=== PATIENT | female | born 1985 | race Caucasian/White ===

== ENCOUNTER 2016-11-17 09:59 | Emergency (ER) | payer OTHER ==
[~2016-11-17] VITALS: Ht 165.1 cm; Wt 83.9 kg
[2016-11-17 10:07] VITALS: BP 130/81
--- NOTE | 2016-11-17 10:30 | ED NECK/BACK PAIN COMPLAINT ---
History of Present Illness General Chief Complaint: Low Back Pain/Injury Stated Complaint: BACK PAIN CHRONIC Source: patient, family Exam Limitations: no limitations Vital Signs & Intake/Output Vital Signs & Intake/Output Vital Signs Date Time Temp Pulse Resp B/P B/P Pulse O2 O2 Flow FiO2 Mean Ox Delivery Rate 11/17 1007 97.7 110 16 130/81 97 Room Air Allergies Coded Allergies: No Known Allergies (05/22/16) Reconcile Medications Cyclobenzaprine HCl 10 MG TABLET 1 TAB PO Q8P PAIN OR SPASM Oxycodone HCl (Roxicodone) 15 MG TABLET 1 TAB PO 4XDP PRN PAIN Prednisone 10 MG TABLET 1 TAB PO DAILY BACK PAIN TAKE 4 TABS FOR 3 DAYS THEN TAKE 3 TABS FOR 3 DAYS THEN TAKE 2 TABS FOR 3 DAYS THEN TAKE 1 TAB FOR 3 DAYS Triage Note: PT HERE FOR PAIN MEDICATION FOR HER CHRONIC BACK PAIN. Triage Nurses Notes Reviewed? yes : No Patient currently breastfeeds: No HPI: Patient has chronic low back pain secondary to herniated disks. Patient is due to have surgery. Patient ran out of her pain medication. 3 days ago patient lift her daughter and had a sudden onset of worsening low back pain radiating down her left leg. The pain worsens with movement. There is no incontinence of bowel or bladder. There is no weakness or numbness. Patient is unable to see her doctor until the . There is no fever or Chills. The pain is 10 out of 10 and is throbbing in nature. The pain is constant. Past History Travel History Traveled to [place] past 21 day No Medical History Any Pertinent Medical History? see below for history Musculoskeletal: CHRONIC BACK PAIN Psychiatric: anxiety Surgical History Surgical History: non-contributory Psychosocial History What is your primary language Yoruba Tobacco Use: Current Daily Use Daily Tobacco Use Amount/Type: => 5 Cigarettes daily ETOH Use: denies use Illicit Drug Use: denies illicit drug use Family History Hx Contributory? No Review of Systems Review of Systems Constitutional: Reports: no symptoms. Ears, Nose, Throat, Mouth: Reports: no symptoms. Respiratory: Reports: no symptoms. Cardiovascular: Reports: no symptoms. Musculoskeletal: Reports: see HPI, back pain. Neurological/Psychological: Reports: no symptoms. Physical Exam Physical Exam General Appearance: well developed/nourished, alert, awake, anxious, moderate distress Eyes: Bilateral: PERRL, EOMI. Neck: normal inspection, supple, full range of motion Respiratory: normal breath sounds, chest non-tender, no respiratory distress, lungs clear Cardiovascular: regular rate/rhythm, normal peripheral pulses Gastrointestinal: normal bowel sounds, soft, non-tender, no organomegaly Back: muscle spasm, no vertebral tenderness Straight Leg Raising: Right: Negative. Left: Negative. DTR: Deficit L4 Left: No Deficit L4 Right: No Deficit S1 Left: No Deficit S1 Right: No Patellar: 3: L4 Right, L4 Left. Achilles: 3: S1 Right, S1 Left. Neurologic/Psych: no motor/sensory deficits, awake, alert, oriented x 3, normal gait, normal mood/affect Progress Differential Diagnosis: herniated disc, myofascial strain, sciatica, T/L spine injury Plan of Care: Current Medications Sig/Margarita Start time Last Medication Dose Stop Time Status Admin Cyclobenzaprine HCl 10 MG ONCE ONE 11/17 1030 UNVr (Flexeril 10MG Tab) 11/17 1031 Oxycodone HCl 15 MG ONCE ONE 11/17 1030 UNVr (Roxicodone) 11/17 1031 Prednisone 60 MG ONCE ONE 11/17 1030 UNVr 11/17 1031 Departure Departure Disposition: HOME OR SELF CARE Condition: Stable Clinical Impression Primary Impression: Back pain Qualifiers: Back pain location: low back pain Chronicity: chronic Back pain laterality: left Sciatica presence: without sciatica Qualified Codes: M54.5 - Low back pain; G89.29 - Other chronic pain Referrals: ALEIDA HARKINS,NIESHA Wilkinson (PCP/Family) Additional Instructions: USE MOIST HEAT FOLLOW UP WITH YOUR DOCTOR RETURN FOR ANY CONCERNS Departure Forms: Customer Survey General Discharge Information Prescriptions: Current Visit Scripts Cyclobenzaprine HCl 1 TAB PO Q8P #20 TAB Prednisone 1 TAB PO DAILY #30 TAB TAKE 4 TABS FOR 3 DAYS THEN TAKE 3 TABS FOR 3 DAYS THEN TAKE 2 TABS FOR 3 DAYS THEN TAKE 1 TAB FOR 3 DAYS Oxycodone HCl (Roxicodone) 1 TAB PO 4XDP PRN PAIN #16 TAB
[2016-11-17] MEDS ORDERED: ROXICODONE15 M1 PO (10:32)
[2016-11-17] MEDS ORDERED: PREDNISONE10 M2 PO (10:32)
[2016-11-17] MEDS ORDERED: CYCLOBENZAPRINE10 M1 PO (10:32)
== END 2016-11-17 10:40 ==
LOC: ERH 09:59 → EDBD 10:10 → ERH 10:10
DX: M54.5 Low back pain (principal)

== ENCOUNTER 2016-11-26 14:35 | Emergency (ER) | payer OTHER ==
[~2016-11-26] VITALS: Ht 162.6 cm; Wt 83.5 kg
[~2016-11-26 14:35] MED LIST: CYCLOBENZAPRINE10 M1 PO; PREDNISONE10 M2 PO; ROXICODONE15 M1 PO
--- NOTE | 2016-11-26 16:43 | ED UPPER/LOWER EXTREMITY COMPL ---
History of Present Illness General Chief Complaint: Lower Extremity Problems Stated Complaint: PT IS HAVING BACK PAIN Source: patient Exam Limitations: no limitations Vital Signs & Intake/Output Vital Signs & Intake/Output Vital Signs Date Time Temp Pulse Resp B/P B/P Pulse O2 O2 Flow FiO2 Mean Ox Delivery Rate 11/26 1721 98.2 110 18 127/88 98 Room Air 11/26 1451 98.3 112 18 126/86 98 Room Air ED Intake and Output 11/27 0000 11/26 1200 Intake Total Output Total Balance Patient 184 lb Weight Allergies Coded Allergies: shellfish derived (ANAPHYLAXIS - SEAFOOD 11/26/16) Reconcile Medications Alprazolam 2 MG TABLET 1 TAB PO BID ANXIETY (Reported) Oxycodone HCl 15 MG TABLET 1 TAB PO TID PRN PAIN Oxycodone HCl (Roxicodone) 15 MG TABLET 1 TAB PO 4XDP PRN PAIN Triage Note: PT COMPLAINS OF LOW BACK PAIN THAT SHE STATES IS CHRONIC. PT RAN OUT OF HER OXYCODONE 15 MG THAT SHE TAKES QID ON FRIDAY Triage Nurses Notes Reviewed? yes Onset: Abrupt Duration: day(s): (4-5) Timing: recent history Severity: moderate, severe Pain/Injury Location: Bilateral: Other (BACK). Modifying Factors: Worsens With: movement. Associated Symptoms: stiffness, MUSCLE SPASM : No Patient currently breastfeeds: No HPI: This is a 31-year-old female presents to the ER for chief complaint of acute on chronic low back pain. She is on oxycodone 50 mg 4 times a day for the last 2 years. She ran out of her medications on . Today she saw her neurosurgeon in the office who she thought was going to refill her prescriptions but they told her that her PCP needed to do that. She then went to her primary care doctor's office who was unavailable to see her. Patient is due to have a discectomy which she is trying to schedule. She has a history of chronic hernia disc. Denies any new numbness or tingling but has been dealing with difficulty with her urine for the past 2 years. Secondary to this. Advised her to have surgery which is probably going to do. Patient denies abusing her medications. Past History Travel History Traveled to [place] past 21 day No Medical History Any Pertinent Medical History? 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 No Review of Systems Review of Systems Constitutional: Denies: chills, fever. EENTM: Reports: no symptoms. Respiratory: Denies: cough, short of breath. Cardiovascular: Denies: chest pain. Gastrointestinal/Abdominal: Reports: diarrhea. Denies: nausea, vomiting. Genitourinary: Reports: no symptoms. Musculoskeletal: Reports: back pain, muscle pain, muscle stiffness. Skin: Reports: no symptoms. Neurological/Psychological: Reports: no symptoms. Hematologic/Endocrine: Denies: bruising, bleeding, polyuria, polydipsia. Immunological: Denies: splenectomy. All Other Systems: Reviewed and Negative Physical Exam Physical Exam General Appearance: well developed/nourished, alert, awake, mild distress Head: atraumatic Eyes: Bilateral: PERRL, EOMI. Ears, Nose, Throat: normal pharynx, normal ENT inspection, hearing grossly normal Neck: normal inspection, supple Cardiovascular/Respiratory: regular rate/rhythm Peripheral Pulses: 2+ radial (R), 2+ radial (L) Back: normal inspection, TENDER TO PALPATION OF LOWER BACK NO DEFORMITY, SKIN LESIONS NO DIRECT TENDERNESS TO PALPATION OVER SPINOUS PROCESSES Neurologic/Tendon: normal sensation, normal motor functions, normal tendon functions Skin: intact, normal color, warm/dry Lymphatic: no anterior cervical david Progress Differential Diagnosis: acute on chronic back pain, medication refill, SCIATICA, HERNIATED DISCS Plan of Care: LIMITED RX SENT TO PHARMACY PATIENT TOLD TO FOLLOW UP WITH HER PCP/ORTHOPEDIST FOR FUTURE SUPPLY OF MEDICATIONS Departure Departure Time of Disposition: 1648 Disposition: HOME OR SELF CARE Condition: Stable Clinical Impression Primary Impression: Chronic pain Referrals: ALEIDA HARKINS,NIESHA Wilkinson (PCP/Family) Additional Instructions: Take medications as prescribed. They are at [facility]. Please call her primary care doctor regarding the issues with your pain prescriptions. Schedule your discectomy as previously discussed. Departure Forms: Customer Survey General Discharge Information Prescriptions: Current Visit Scripts Oxycodone HCl 1 TAB PO TID PRN PAIN #10 TAB
[2016-11-26] MEDS ORDERED: OXYCODONE HCL15 M1 PO (16:48)
[2016-11-26] MEDS ORDERED: ALPRAZOLAM2 M2 PO (16:55)
[2016-11-26 17:21] VITALS: BP 127/88
== END 2016-11-26 17:21 ==
LOC: ERH 14:35 → EDBD 15:15 → ERH 17:21
DX: G89.29 Other chronic pain (principal)
CPT/HCPCS: 99281

== ENCOUNTER 2016-12-04 12:59 | Emergency (ER) | payer OTHER ==
[~2016-12-04] VITALS: Ht 162.6 cm; Wt 83.5 kg
[~2016-12-04 12:59] MED LIST changes: +ALPRAZOLAM2 M2 PO; +OXYCODONE HCL15 M1 PO
[2016-12-04 13:06] VITALS: BP 118/80
--- NOTE | 2016-12-04 13:20 | ED NECK/BACK PAIN COMPLAINT ---
History of Present Illness General Chief Complaint: Low Back Pain/Injury Stated Complaint: BACK PAIN Source: patient Exam Limitations: no limitations Vital Signs & Intake/Output Vital Signs & Intake/Output Vital Signs Date Time Temp Pulse Resp B/P B/P Pulse O2 O2 Flow FiO2 Mean Ox Delivery Rate 12/04 1306 98.0 120 20 118/80 98 Room Air Allergies Coded Allergies: shellfish derived (ANAPHYLAXIS - SEAFOOD 11/26/16) Reconcile Medications Alprazolam 2 MG TABLET 1 TAB PO BID ANXIETY (Reported) Ketorolac Tromethamine 10 MG TABLET 1 TAB PO Q6P PRN pain Oxycodone HCl 15 MG TABLET 1 TAB PO TID PRN PAIN Oxycodone HCl (Roxicodone) 15 MG TABLET 1 TAB PO 4XDP PRN PAIN Triage Note: PT TO ED C/O EXACERBATION OF CHRONIC BACK PAIN. THINKS SHE EXACERBATED IT OVER THE WEEKEND. TAKES 15MG OXYCODONE 4X/DAY. PT RAN OUT OF MEDS. SCHEDULED FOR SURGERY 12/27 FOR HERNIATED DISKS. Triage Nurses Notes Reviewed? yes Onset: Gradual Duration: constant Timing: remote history Location: lumbar spine, paraspinous muscles Radiation: buttocks, upper legs, lower legs Loss of Consciousness: no loss of consciousness : No Patient currently breastfeeds: No HPI: Patient is a 31-year-old female with past medical history of chronic back pain and herniated disks where she states that next month she will have a surgical intervention for her low back and which she states that for her chronic back pain she was receiving narcotic prescriptions by her primary care doctor however last month the primary care doctor advised the orthopedic doctor to provide narcotic prescriptions to the patient where she states that the orthopedic doctor wanted the primary care doctor to provide narcotics to the patient where she has presented now on her fifth visit to a urgent care facility or the ER for prescription request of pain medications for her chronic low back pain. Patient denies any significant mechanism of injury recently or falls. Patient has chronic left lower extremity paresthesia and pain. Denies any saddle paresthesia or bowel bladder incontinence. Patient states that low back movements make worse. (REINA ALEXANDRE,LILIYA) Past History Travel History Traveled to [place] past 21 day No Medical History Any Pertinent Medical History? 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 No (LILIYA HOPPER) Review of Systems Review of Systems Constitutional: Reports: no symptoms. Eyes: Reports: no symptoms. Ears, Nose, Throat, Mouth: Reports: no symptoms. Respiratory: Reports: no symptoms. Cardiovascular: Reports: no symptoms. Gastrointestinal/Abdominal: Reports: no symptoms. Musculoskeletal: Reports: see HPI. Skin: Reports: no symptoms. Neurological/Psychological: Reports: see HPI, paresthesia. All Other Systems: Reviewed and Negative (LILIYA HOPPER) Physical Exam Physical Exam General Appearance: no apparent distress, alert Neck: normal inspection, supple, full range of motion Comments: Well-developed well-nourished person in no acute distress HEENT: Normal EENT exam, Neck: Supple, no lymphadenopathy, normal range of motion without pain or tenderness Back: Normal inspection, decreased active range of motion noted, left lateral muscular point tenderness noted Cardiovascular: Regular rate and rhythms no murmurs rubs or gallops, normal JVP Respiratory: Chest nontender. No respiratory distress.breath sounds clear to auscultation bilaterally Abdomen: Soft, nontender nondistended, no appreciable organomegaly. Normal bowel sounds. No ascites Extremity: No edema, no calf tenderness to palpation, normal and equal pulses. Bilateral lower extremity myotomes dermatomes DTRs intact Neuro: Alert oriented x3, motor sensory normal, . Skin: No appreciable rash on exposed skin, skin is warm and dry. Psych: Mood and affect is normal, memory and judgment is normal. (LILIYA HOPPER) Progress Differential Diagnosis: AAA, aortic dissection, C spine injury, carotid dissection, cauda equina syn, herniated disc, myofascial strain, pyelo/UTI, sciatica, spinal cord inj, thoracic outlet syn, T/L spine injury, ureterolithiasis Plan of Care: Current Medications Sig/Margarita Start time Last Medication Dose Stop Time Status Admin Dexamethasone 8 MG ONCE ONE 12/04 1345 UNVr (Decadron) 12/04 1346 Ketorolac 30 MG ONCE ONE 12/04 1345 UNVr Tromethamine 12/04 1345 (Toradol) Oxycodone/ 1 TAB ONCE ONE 12/04 1344 UNVr Acetaminophen 12/04 1345 (Percocet) Patient currently presents emergency room with concerns of chronic lumbar radiculopathy and low back pain. There are no concerns of CUADA EQUINA SYNDROME It is noted through CT [employer] the patient has received X4 narcotic prescriptions in the last month and which at this time I do not feel comfortable prescribing another narcotic medication to the patient. Patient was strongly advised to follow up with the primary care doctor and/or the orthopedic doctor for medication refill request. Patient had normal steady gait on discharge. (LILIYA HOPPER) Departure Departure Disposition: HOME OR SELF CARE Condition: Stable Clinical Impression Primary Impression: Low back pain Referrals: ALEIDA HARKINS,NIESHA Wilkinson (PCP/Family) Additional Instructions: As discussed begin icing or heating the area for relief of your symptoms. You have received an intramuscular injection of Decadron in the emergency room, for inflammation. Begin the prescription and ketorolac for pain and inflammation. Prescriptions are waiting at [facility]. Follow-up with your primary care doctor and/or your orthopedic doctor THIS week for prescription medication request. If symptoms worsen return to emergency room Departure Forms: Customer Survey General Discharge Information Prescriptions: Current Visit Scripts Ketorolac Tromethamine 1 TAB PO Q6P PRN pain #20 TAB (LILIYA HOPPER) PA/STATUS CONTROLLER Co-Sign Statement Statement: ED Attending supervision documentation- [] I saw and evaluated the patient. I have also reviewed all the pertinent lab results and diagnostic results. I agree with the findings and the plan of care as documented in the PA's/STATUS CONTROLLER's documentation. [X] I have reviewed the ED Record and agree with the PA's/STATUS CONTROLLER's documentation. [] Additions or exceptions (if any) to the PAs/STATUS CONTROLLER's note and plan are summarized below: [] (JOSELINE MAYA DO)
[2016-12-04] MEDS ORDERED: KETOROLAC TROME10 M1 PO (13:36)
== END 2016-12-04 14:06 ==
LOC: ERH 12:59
DX: M54.5 Low back pain (principal)
CPT/HCPCS: 96372; J1885

== ENCOUNTER 2017-08-20 18:07 | Emergency (ER) | payer OTHER ==
[~2017-08-20] VITALS: Ht 162.6 cm; Wt 73.5 kg
[~2017-08-20 18:07] MED LIST changes: +KETOROLAC TROME10 M1 PO; +ROXICODONE30 M1 PO
[2017-08-20 18:35] VITALS: BP 112/73
[2017-08-20] MEDS ORDERED: PERCOCET 5-3251 EACH PO (18:38)
--- NOTE | 2017-08-20 18:39 | ED NECK/BACK PAIN COMPLAINT ---
History of Present Illness General Chief Complaint: General Adult Stated Complaint: PAIN MEDS Source: patient, old records Exam Limitations: no limitations Vital Signs & Intake/Output Vital Signs & Intake/Output Vital Signs Date Time Temp Pulse Resp B/P B/P Pulse O2 O2 Flow FiO2 Mean Ox Delivery Rate 08/20 1835 98.3 100 16 112/73 97 Room Air Allergies Coded Allergies: shellfish derived (ANAPHYLAXIS - SEAFOOD 11/26/16) Reconcile Medications Oxycodone HCl 15 MG TABLET 1 TAB PO 4XDP back pain Oxycodone HCl 15 MG TABLET 1 TAB PO TID PRN PAIN Oxycodone HCl (Roxicodone) 30 MG TABLET 1 TAB PO BID PAIN Oxycodone HCl (Roxicodone) 15 MG TABLET 1 TAB PO 4XDP PRN PAIN Oxycodone HCl/Acetaminophen (Percocet 5-325 MG Tablet) 5 MG-325 MG TABLET 1 TAB PO BID PRN PAIN Triage Note: PT STATES SHE MISSED HER PAIN MANAGEMENT APPT. TODAY AND WAS TOLD TO COME TO ED THAT THERE WAS NOTHING THEY COULD DO FOR HER. PT STATES SHE HAS TWO HERNIATED DISC IN HER BACK. Triage Nurses Notes Reviewed? yes Onset: Gradual Duration: day(s): (1), constant Timing: recent history Quality/Severity: moderate Location: lumbar spine, paraspinous muscles Context: chronic Loss of Consciousness: no loss of consciousness Modifying Factors: movement, pain medication, rest Associated Symptoms: denies : No Patient currently breastfeeds: No HPI: 32-year-old female history of chronic back pain and pain management in [place] for she is on Roxicodone 30 mg presents to ER for evaluation after she states she missed her appointment on August 14 she was seen here at the emergency room at that time and was prescribed her medication presents for refill she states she is still unable follow up with her pain management. She denies recent new injury trauma or fall. No abdominal pain fever chills no urinary or bowel incontinence. (Giuliana ALEXANDRE,Reinaldo) Past History Travel History Traveled to [place] past 21 day No Medical History Any Pertinent Medical History? 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 No (Reinaldo Mccann) Review of Systems Review of Systems Constitutional: Reports: see HPI. Comments Review of systems: See HPI, All other systems negative. Constitutional, no chills no fever, HEENT: no sore throat no congestion Cardiovascular: No chest pain , Skin: no rashes, no change in skin Respiratory: No dyspnea no cough no sputum GI: No nausea no vomiting, no diarrhea : No dysuria No hematuria, no frequency Muscle skeletal: chronic back pain, no neck pain, Neurologic: , no headache Heme/endocrine: No bruising (Reinaldo Mccann) Physical Exam Physical Exam General Appearance: well developed/nourished, no apparent distress, alert, awake , comfortable Neck: normal inspection, supple, full range of motion Comments: Well-developed well-nourished patient in no apparent distress. HEENT: Atraumatic, extraocular motion intact Neck: Supple, FROM Back: FROM Cardiovascular: Regular rate and rhythm Respiratory: No respiratory distress. Patient speaking in full complete sentences. Breath sounds clear to auscultation bilaterally: NO W/R/R Extremities: full range of motion 5/5 strength to b/l le Neuro: awake, alert, and oriented to person, place and time. There were no obvious focal neurologic abnormalities. Skin: Warm & dry;No appreciable rash on exposed skin Psych: Mood affect normal, normal memory normal judgment. Core Measures CVA/TIA Diagnosis: No (Reinaldo Mccann) Progress Differential Diagnosis: cauda equina syn, herniated disc, myofascial strain, pyelo/UTI, spinal cord inj Plan of Care: Patient has been seen numerous times the past for her chronic back pain most recently 8 days ago, I discussed with her that we cannot continue to provide her with her narcotic medications that she is in pain management there is no recent new injury or trauma patient is resting in no apparent distress she feels comfortable with this plan (Reinaldo Mccann) Departure Departure Time of Disposition: 1836 Disposition: HOME OR SELF CARE Condition: Stable Clinical Impression Primary Impression: Chronic pain Referrals: Kerry Cedeno APRN (PCP/Family) Additional Instructions: FOLLOW UP WITH YOUR PMD FOR FUTURE REFILLS OF YOUR MEDICATION UNTIL YOU CAN SEE YOUR PAIN MANAGEMENT THIS ER CANNOT CONTINUE TO PRESCRIBE THIS MEDICATION. PERCOCET FOR PAIN- USE CAUTION THESE MEDICATIONS ARE HIGHLY ADDICTIVE. Departure Forms: Customer Survey General Discharge Information Prescriptions: Current Visit Scripts Oxycodone HCl/Acetaminophen (Percocet 5-325 MG Tablet) 1 TAB PO BID PRN PAIN #10 TAB (Giuliana ALEXANDRE,Reinaldo) PA/CNC MAINTENANCE MECHANIC Co-Sign Statement Statement: ED Attending supervision documentation- [] I saw and evaluated the patient. I have also reviewed all the pertinent lab results and diagnostic results. I agree with the findings and the plan of care as documented in the PA's/CNC MAINTENANCE MECHANIC's documentation. [X] I have reviewed the ED Record and agree with the PA's/CNC MAINTENANCE MECHANIC's documentation. [] Additions or exceptions (if any) to the PAs/CNC MAINTENANCE MECHANIC's note and plan are summarized below: [] (Britton HARKINS,Orlando Rdz)
== END 2017-08-20 18:44 ==
LOC: ERH 18:07
DX: G89.29 Other chronic pain (principal)

== ENCOUNTER 2017-12-10 17:27 | Observation (INO) | payer OTHER ==
[~2017-12-10 17:27] MED LIST changes: +PERCOCET 5-3251 EACH PO
--- NOTE | 2017-12-10 17:52 | ED GENERAL ADULT ---
See Addendum History of Present Illness General Chief Complaint: ETOH/Drug Related Complaint Stated Complaint: BIBA FOR DRUG/ETOH Source: patient, EMS, police Exam Limitations: no limitations Vital Signs & Intake/Output Vital Signs & Intake/Output Vital Signs Date Time Temp Pulse Resp B/P B/P Pulse O2 O2 Flow FiO2 Mean Ox Delivery Rate 12/10 1740 Room Air 12/10 1735 98.7 87 16 130/91 98 Room Air Allergies Coded Allergies: shellfish derived (ANAPHYLAXIS - SEAFOOD 11/26/16) Reconcile Medications Oxycodone HCl 15 MG TABLET 1 TAB PO 4XDP back pain Oxycodone HCl 15 MG TABLET 1 TAB PO TID PRN PAIN Oxycodone HCl (Roxicodone) 30 MG TABLET 1 TAB PO BID PAIN Oxycodone HCl (Roxicodone) 15 MG TABLET 1 TAB PO 4XDP PRN PAIN Oxycodone HCl/Acetaminophen (Percocet 5-325 MG Tablet) 5 MG-325 MG TABLET 1 TAB PO BID PRN PAIN Triage Note: PT CAME IN FROM EMS. WAS ARRESTED AT [employer] FOR [facility], WHEN PT STATES DID 10BAGS OF HEROIN AND SWALLOWED A [place]. [employer] PATENT. CLEAR THROAT. PT STATES THAT THE FIRST TIME SHE USED HEROIN WAS LAST FRIDAY. SHE STATED THAT DID HEROIN B/C SHE RAN OUT OF HER OXY FOR PAIN FOR HER BACK. Triage Nurses Notes Reviewed? yes : No Patient currently breastfeeds: No HPI: Patient is a 32-year-old female with past medical history of vertebral fractures and slipped disks on oxycodone for the past several years, who presents today in police custody via EMS after a heroin overdose. She reports that the first time she ever used heroin was 6 days ago after she ran out of her oxycodone prescription pills and began to experience withdrawal. A colleague of hers who is a long time heroin user suggested she try it. She has been using 2-3 bags intravenously since then, and today was with that acquaintance all day and had used approximately 10 bags. They needed to get money and went to the [employer] where she attempted to use a fake identification card, at which time place were called. Prior to being arrested, the patient states that she stuffed 3 partially open dime bags of heroin into her mouth and swallowed them whole. That was 45 minutes prior to arrival. The patient remains in place custody and is scheduled to appear in court tomorrow. Currently, she is very tearful but not somnolent. Past History Travel History Traveled to [place] past 21 day No Medical History Any Pertinent Medical History? 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 No Review of Systems Review of Systems Constitutional: Reports: see HPI. EENTM: Reports: no symptoms. Respiratory: Reports: no symptoms. Cardiovascular: Reports: no symptoms. GI: Reports: no symptoms. Genitourinary: Reports: no symptoms. Musculoskeletal: Reports: no symptoms. Skin: Reports: no symptoms. Neurological/Psychological: Reports: see HPI, emotional problems. Hematologic/Endocrine: Reports: no symptoms. Immunologic/Allergic: Reports: no symptoms. All Other Systems: Reviewed and Negative Physical Exam Physical Exam General Appearance: well developed/nourished, anxious, mild distress Comments: Gen.: Anxious, tearful female in no medical distress. Highly emotionally distressed. HEENT: Inspection of the head reveals a normocephalic cranium with no signs of trauma. Ophtho: Extraocular muscles are intact. The sclera are noninjected, and there is no obvious discharge. Neck: No signs of trauma or asymmetry to the neck. Respiratory: The patient exhibits no signs of labored breathing. Cardiac: Non-tachycardic. GI: No gross abdominal distention. : Deferred Neuro: Do not sedate or somnolent at the present time. The patient is oriented to person, place, time, and situation, with no obvious focal motor deficits. Cranial nerves II through XII are intact, and gait is normal. Behavioral: Tearful, anxious, regretful, denying suicidality or homicidality. Dermatologic: Dermatologic examination reveals no obvious rashes or exanthems. Core Measures ACS in differential dx? No CVA/TIA Diagnosis: No Sepsis Present: No Sepsis Focused Exam Completed? No Progress Differential Diagnoses I considered the following diagnoses in my evaluation of the patient: Heroin overdose, respiratory failure, respiratory insufficiency, opiate overdose, coingestants, psychiatric disease, multiple other possibilities. Plan of Care: Orders Procedure Date/time Status Regular Diet 12/11 B Active ACETOMINOPHEN 12/10 1821 Active SALICYLATE 12/10 1821 Active URINE 12/10 1744 Complete URINALYSIS 12/10 1744 Complete TROPONIN LEVEL 12/10 1744 Active COMPREHENSIVE METABOLIC PANEL 12/10 1744 Active CBC WITHOUT DIFFERENTIAL 12/10 1744 Complete EKG 12/10 1744 Active URINE DRUGS OF ABUSE 12/10 173 Active Laboratory Tests 12/10/171821: Sodium Pending, Potassium Pending, Chloride Pending, Carbon Dioxide Pending, Anion Gap Pending, BUN Pending, Creatinine Pending, BUN/Creatinine Ratio Pending , Glucose Pending, Calcium Pending, Total Bilirubin Pending, AST Pending, ALT Pending, Alkaline Phosphatase Pending, Troponin I Pending, Total Protein Pending , Albumin Pending, Globulin Pending, Albumin/Globulin Ratio Pending, CBC w Diff NO MAN DIFF REQ, RBC 4.59, MCV 88.8, MCH 30.0, MCHC 33.8, RDW 13.1, MPV 10.1, Gran % 87.4 H, Lymphocytes % 8.5 L, Monocytes % 3.6, Eosinophils % 0.3, Basophils % 0.2, Absolute Granulocytes 10.7 H, Absolute Lymphocytes 1.0 L, Absolute Monocytes 0.4, Absolute Eosinophils 0, Absolute Basophils 0, Salicylates Pending, Acetaminophen Pending 12/10/17 1805: Methadone Screen Pending, Barbiturate Screen Pending, Ur Phencyclidine Scrn Pending, Amphetamines Screen Pending, U Benzodiazepines Scrn Pending, Urine Cocaine Screen Pending, Urine Cannabis Screen Pending, Urine Color STRAW, Urine Clarity CLEAR, Urine pH 6.0, Ur Specific [place] <= 1.005, Urine Protein NEG, Urine Ketones NEG, Urine Nitrite NEG, Urine Bilirubin NEG, Urine Urobilinogen 0.2, Ur Leukocyte Esterase NEG, Ur Microscopic EXAM NOT REQUIRED, Urine Hemoglobin NEG, Urine Glucose NEG, Urine Test NEGATIVE 12/10/171751: Salicylates Cancelled, Acetaminophen Cancelled Initial ED EKG: EKG performed at 1756, read by me at 1757, normal sinus rhythm with rate of 81, normal intervals, T-wave flattening in III, no other ST segment or T-wave changes, no ischemia, no STEMI, no priors for comparison. Hand-Off Endorsed To: Orlin Young MD Comments: Patient presented after heavy heroin use today with superimposed stuffing of 3 unquantified baggies orally. Unknown quantity in the GI tract as for only 45 minutes prior to arrival. Potential for continued obtundation. Laboratory studies pending. Patient currently in police custody. Expectation is that she' ll be monitored in the emergency department for most of the evening until we are comfortable that further decompensation is unlikely from her overdose. Once that is the case, she is to be most likely discharged to the custody of police for her court appearance tomorrow. Care transitioned at shift change to Dr. Young Departure Departure Disposition: STILL A PATIENT Condition: Stable Clinical Impression Primary Impression: Heroin overdose Qualifiers: Encounter type: initial encounter Injury intent: undetermined intent Qualified Code: T40.1X4A - Poisoning by heroin, undetermined, initial encounter Referrals: Kerry Cedeno APRN (PCP/Family) Departure Forms: Customer Survey General Discharge Information Critical Care Note Critical Care Note Critical Care Time: non-applicable
[2017-12-10 18:38] LABS: ABSOLUTE BASOPHIL COUNT 0 /CUMM (0.0-0.2); ABSOLUTE EOSINOPHIL COUNT 0 /CUMM (0.0-0.7); ABSOLUTE GRANULOCYTE CT 10.7 /CUMM (1.4-6.5); ABSOLUTE MONOCYTE COUNT 0.4 /CUMM (0.10-0.60); BASOPHIL % 0.2 % (0.0-2.0); EOSINOPHIL % 0.3 % (0-5); HEMATOCRIT 40.8 % (37-47); MEAN CORPUSCULAR HGB CONC 33.8 G/DL (33.0-37.0); MEAN CORPUSCULAR VOLUME 88.8 FL (81.0-99.0); MEAN PLATELET VOLUME 10.1 FL (7.4-10.4); PLATELET COUNT 244 /CUMM (130-400); RBC DISTRIBUTION WIDTH 13.1 % (11.5-14.5); RED BLOOD CELL CT 4.59 /CUMM (4.20-5.40); WHITE BLOOD CELL COUNT 12.3 /CUMM (4.8-10.8)
[2017-12-10 18:53] LABS: GRANULOCYTE % 87.4 % (42.2-75.2)
[2017-12-10] MEDS ORDERED: PROAIR HFA8.5 GM INH (20:42)
[2017-12-10] MEDS ORDERED: OXYCODONE HCL15 M1 PO (20:42)
[2017-12-10] MEDS ORDERED: ALPRAZOLAM2 M2 PO (20:42)
[2017-12-11 05:27] VITALS: BP 105/61
== END 2017-12-11 06:23 ==
LOC: ERH 17:27 → ERHI 19:55
PROVIDERS: Student in an Organized Health Care Education/Training Program
DX: T40.1X4A Poisoning by heroin, undetermined, initial encounter (principal); Y92.9 Unspecified place or not applicable; G89.29 Other chronic pain; M54.9 Dorsalgia, unspecified; F41.9 Anxiety disorder, unspecified; F17.200 Nicotine dependence, unspecified, uncomplicated
CPT/HCPCS: 6090; 80307; 81003; 81025; 93005; 93010; 96374; G0378; G0480; J1885